=== PATIENT | female | born 1960 | race Caucasian/White ===

== ENCOUNTER 2017-02-04 16:32 | Observation (INO) | payer OTHER ==
[~2017-02-04] VITALS: Ht 154.9 cm; Wt 86.2 kg
[~2017-02-04 16:32] MED LIST: ALBUTEROL SULF8.5 GM IH; ASPIRIN81 M2 PO; CLONAZEPAM1 MG; CLONAZEPAM1 MG PO; CYCLOBENZAPRINE10 MG PO; FLEXERIL10 MG PO; FLONASE16 G1 BOTH NARES; FLOVENT 11120 INHALA IH; HYDROCODON-ACE1 EAC7; KLONOPIN1 MG PO; LIPITOR40 MG PO; LISINOPRIL10 MG PO; NEXIUM20 MG PO; NITROSTAT0.4 MG SL; PERCOCET 5/31 TABLET PO; PRAVASTATIN SOD20 MG PO; ULTRAM50 MG; VENTOLIN HFA18 GM IH; WELLBUTRIN SR150 MG PO
[2017-02-04 17:39] LABS: HEMATOCRIT 48.2 % (36.0-46.0); MCH 28.7 PG (29.0-34.0); MCHC 33.2 G/DL (30.0-36.0); MCV 86.5 FL (83-99); MEAN PLAT.VOLUME 9.3 uM^3 (9.5-12.4); PLATELET COUNT 341 K/uL (156-360); RBC DIS.WIDTH-CV 14.9 % (11.8-14.6); RBC DIS.WIDTH-SD 47.7 % (39-53); RED BLOOD COUNT 5.57 M/uL (3.80-5.20); WHITE BLOOD COUNT 11.9 K/uL (4.1-10.2)
[2017-02-04 17:51] LABS: CHLORIDE 102 mEq/L (99-109); SODIUM 137 mEq/L (136-147)
[2017-02-04 17:52] LABS: GLUCOSE 101 mg/dL (70-99)
[2017-02-04 17:54] LABS: ANION GAP 12 MEQ/L (2-14)
[2017-02-04 17:56] LABS: GFR ESTIMATE (CALCULATED) > 59 mL/min/
[2017-02-04 17:57] LABS: UREA NITROGEN (BUN) 10 mg/dL (9-23)
[2017-02-04 18:00] LABS: TROP-I INTERPRETATION NEGATIVE; TROPONIN-I 0.01 ng/mL (0.0-0.30)
[2017-02-04 18:05] LABS: BILIRUBIN NEGATIVE; BLOOD NEGATIVE; COLOR YELLOW ((YELLOW)); GLUCOSE (STRIP) NEGATIVE; KETONES NEGATIVE; LEUKOCYTES NEGATIVE; NITRITE NEGATIVE; PROTEIN (STRIP) NEGATIVE; SPECIFIC GRAVITY 1.008 (1.000-1.030); UROBILINOGEN 0.2 MG/DL (0.2-1.0)
[2017-02-04 18:13] LABS: ADD MIUA? NO
[2017-02-04] MEDS ORDERED: CLONAZEPAM0.5 MG PO (19:04)
[2017-02-04 21:25] LABS: HDL CHOLESTEROL 33 MG/DL (Desirable>=50); LDL CHOLESTEROL 219 mg/dL (Desirable<100); NON-HDL CHOLESTEROL 257 mg/dL (Desirable<160); TOTAL CHOLESTEROL 290 mg/dL (Desirable<200); TRIGLYCERIDES 190 MG/DL (Normal: <150)
[2017-02-04 21:35] VITALS: BP 137/61
[2017-02-05] VITALS: BP 121/61
[2017-02-05 04:00] VITALS: BP 130/62
[2017-02-05 05:31] LABS: HEMATOCRIT 44.6 % (36.0-46.0); MCH 29.5 PG (29.0-34.0); MCHC 33.9 G/DL (30.0-36.0); MCV 87.1 FL (83-99); MEAN PLAT.VOLUME 9.4 uM^3 (9.5-12.4); PLATELET COUNT 300 K/uL (156-360); RBC DIS.WIDTH-SD 48.1 % (39-53); RED BLOOD COUNT 5.12 M/uL (3.80-5.20); WHITE BLOOD COUNT 10.6 K/uL (4.1-10.2)
[2017-02-05 06:15] LABS: ALKALINE PHOSPHATASE 131 IU/L (3-129); ANION GAP 7 MEQ/L (2-14); CHLORIDE 103 MEQ/L (99-109); GFR ESTIMATE (CALCULATED) > 59 mL/min/; GLUCOSE 76 mg/dL (70-99); POTASSIUM 4.5 MEQ/L (3.7-5.4); SAMPLE HEMOLYSIS CHECK 0; SAMPLE ICTERIC CHECK 0; SAMPLE LIPEMIA CHECK 0; SODIUM 136 MEQ/L (136-147); TOTAL BILIRUBIN 0.4 MG/DL (0.0-1.0); UREA NITROGEN (BUN) 8 mg/dL (9-23)
[2017-02-05 07:16] VITALS: BP 123/58
[2017-02-05 07:40] LABS: Estimated Average Glucose 108 mg/dL (70-123); HEMOGLOBIN A1c (GLYCOHEMOGLOB) 5.4 % HGB (Below 5.7)
[2017-02-05] MEDS ORDERED: NICOTINE PATCH1 EAC2 TD (09:25)
[2017-02-05 11:35] VITALS: BP 168/77
[2017-02-05] MEDS ORDERED: PRAVASTATIN SOD40 MG PO (12:15)
[2017-02-05] MEDS ORDERED: ASPIRIN81 M2 PO (12:15)
== END 2017-02-05 13:25 | disposition home or self-care (01) ==
LOC: EME 16:32 → EDOF 19:25 → 5WEST 19:25 → EDOF 19:25 → 5WEST 21:30
PROVIDERS: Emergency Medicine; Nurse Practitioner Adult Health
DX: I63.9 Cerebral infarction, unspecified (principal); J44.9 Chronic obstructive pulmonary disease, unspecified; E78.5 Hyperlipidemia, unspecified; I10 Essential (primary) hypertension; K21.9 Gastro-esophageal reflux disease without esophagitis; Z79.82 Long term (current) use of aspirin; F17.200 Nicotine dependence, unspecified, uncomplicated; F32.9 Major depressive disorder, single episode, unspecified; F41.9 Anxiety disorder, unspecified
CPT/HCPCS: 70450; 70551; 71010; 80048; 80053; 80061; 81003; 83036; 84484; 85027; 93005; 93880; 94640; 99281; 99285; G0378; J1650

== ENCOUNTER 2017-04-06 20:21 | Emergency (ER) | payer OTHER ==
[~2017-04-06] VITALS: Ht 154.9 cm; Wt 83.9 kg
[~2017-04-06 20:21] MED LIST changes: +CLONAZEPAM0.5 MG PO; +NICOTINE PATCH1 EAC2 TD; +PRAVASTATIN SOD40 MG PO
[2017-04-06 20:50] LABS: HEMATOCRIT 43.9 % (36.0-46.0); MCH 28.3 PG (29.0-34.0); MCV 85.7 FL (83-99); PLATELET COUNT 304 K/uL (156-360); RBC DIS.WIDTH-CV 14.9 % (11.8-14.6); RED BLOOD COUNT 5.12 M/uL (3.80-5.20); WHITE BLOOD COUNT 11.7 K/uL (4.1-10.2)
[2017-04-06 21:02] LABS: CHLORIDE 107 mEq/L (99-109); POTASSIUM 4.4 mEq/L (3.7-5.4); SODIUM 139 mEq/L (136-147)
[2017-04-06 21:04] LABS: GLUCOSE 91 mg/dL (70-99)
[2017-04-06 21:06] LABS: ANION GAP 11 MEQ/L (2-14)
[2017-04-06 21:08] LABS: GFR ESTIMATE (CALCULATED) > 59 mL/min/
[2017-04-06 21:09] LABS: UREA NITROGEN (BUN) 11 mg/dL (9-23)
[2017-04-06 21:11] LABS: TROP-I INTERPRETATION NEGATIVE; TROPONIN-I < 0.01 ng/mL (0.0-0.30)
[2017-04-07 00:04] LABS: TROP-I INTERPRETATION NEGATIVE; TROPONIN-I < 0.01 ng/mL (0.0-0.30)
[2017-04-07] MEDS ORDERED: ZITHROMAX Z-PA250 MG PO (00:28)
[2017-04-07] MEDS ORDERED: VENTOLIN HFA18 GM IH (00:28)
[2017-04-07] MEDS ORDERED: PREDNISONE20 MG PO (00:28)
[2017-04-07 00:36] VITALS: BP 126/87
== END 2017-04-07 00:37 | disposition home or self-care (01) ==
LOC: EME 20:21
PROVIDERS: Physician Assistant Medical
DX: J44.1 Chronic obstructive pulmonary disease with (acute) exacerbation (principal); E78.5 Hyperlipidemia, unspecified; I10 Essential (primary) hypertension; K21.9 Gastro-esophageal reflux disease without esophagitis; Z86.73 Personal history of transient ischemic attack (TIA), and cerebral infarction without residual deficits; F17.200 Nicotine dependence, unspecified, uncomplicated
CPT/HCPCS: 71020; 80048; 84484; 85027; 93005; 94640; 99281; 99284

== ENCOUNTER 2018-01-25 09:59 | Observation (INO) | payer OTHER ==
[~2018-01-25] VITALS: Ht 154.9 cm; Wt 104.2 kg
[~2018-01-25 09:59] MED LIST changes: +PREDNISONE20 MG PO; +ZITHROMAX Z-PA250 MG PO
[2018-01-25 10:52] LABS: BASOPHIL (%) 0.6 % (0-1); BASOPHIL COUNT 0.1 K/uL (0-0.1); EOSINOPHIL COUNT 0.2 K/uL (0-0.3); HEMATOCRIT 46.4 % (36.0-46.0); HEMOGLOBIN 15.4 G/DL (11.9-15.5); IMMATURE GRANULOCYTE (%) 0.5 % (0.0-0.7); LYMPHOCYTE (%) 28.6 % (15-42); LYMPHOCYTE COUNT 2.9 K/uL (1.0-2.8); MCH 29.1 PG (29.0-34.0); MCHC 33.2 G/DL (30.0-36.0); MCV 87.7 FL (83-99); MONOCYTE (%) 5.2 % (3-12); MONOCYTE COUNT 0.5 K/uL (0-0.8); NEUTROPHIL (%) 63.1 % (45-76); NEUTROPHIL COUNT 6.5 K/uL (1.8-6.4); PLATELET COUNT 324 K/uL (156-360); RBC DIS.WIDTH-CV 15.1 % (11.8-14.6); RBC DIS.WIDTH-SD 48.3 % (39-53); RED BLOOD COUNT 5.29 M/uL (3.80-5.20); WHITE BLOOD COUNT 10.2 K/uL (4.1-10.2)
[2018-01-25 10:55] LABS: AMYLASE 80 IU/L (1-118); CHLORIDE 103 mEq/L (99-109); POTASSIUM 4.4 mEq/L (3.7-5.4); SODIUM 138 mEq/L (136-147)
[2018-01-25 10:57] LABS: GLUCOSE 120 mg/dL (70-99); PTT 28.7 SEC (25-37)
[2018-01-25 11:00] LABS: SERUM ETHYL ALCOHOL < 10 mg/dL
[2018-01-25 11:01] LABS: CREATININE 0.8 mg/dL (0.6-1.3); GFR ESTIMATE (CALCULATED) > 59 mL/min/
[2018-01-25 11:02] LABS: UREA NITROGEN (BUN) 15 mg/dL (9-23)
[2018-01-25 11:04] LABS: LIPASE 17 U/L (1.0-51.0)
[2018-01-25 11:08] LABS: TROP-I INTERPRETATION NEGATIVE; TROPONIN-I 0.01 ng/mL (0.0-0.30)
[2018-01-25 11:10] LABS: QUANTITATIVE HCG < 4.0 MIU/ML
[2018-01-25 12:24] LABS: APPEARANCE CLEAR ((CLEAR)); BILIRUBIN NEGATIVE; BLOOD NEGATIVE; COLOR YELLOW ((YELLOW)); GLUCOSE (STRIP) NEGATIVE; KETONES NEGATIVE; LEUKOCYTES NEGATIVE; NITRITE NEGATIVE; PROTEIN (STRIP) NEGATIVE; SPECIFIC GRAVITY 1.009 (1.000-1.030); UCUL ADDED? NO; UROBILINOGEN 0.2 MG/DL (0.2-1.0)
[2018-01-25 12:32] LABS: AMPHETAMINE NEGATIVE (500 ng/mL); BARBITURATES NEGATIVE (200 ng/mL); BENZODIAZEPINES NEGATIVE (150 ng/mL); BUPRENORPHINE NEGATIVE (10 ng/mL); COCAINE NEGATIVE (150 ng/mL); METHADONE NEGATIVE (200 ng/mL); METHAMPHETAMINE NEGATIVE (500 ng/mL); OPIATES (MORPHINE) NEGATIVE (100 ng/mL); OXYCODONE NEGATIVE (100 ng/mL); PHENCYCLIDINE NEGATIVE (25 ng/mL); PROPOXYPHENE NEGATIVE (300 ng/mL); THC CANNABINOIDS NEGATIVE (50 ng/mL); TRICYCLIC ANTIDEPRESSANTS NEGATIVE (300 ng/mL)
[2018-01-25] MEDS ORDERED: LISINOPRIL20 MG PO (15:29)
[2018-01-25] MEDS ORDERED: FLEXERIL10 MG PO (15:29)
[2018-01-25 16:33] LABS: HDL CHOLESTEROL 39 MG/DL (Desirable>=50); LDL CHOLESTEROL 203 mg/dL (Desirable<100); NON-HDL CHOLESTEROL 238 mg/dL (Desirable<160); TOTAL CHOLESTEROL 277 mg/dL (Desirable<200); TRIGLYCERIDES 175 MG/DL (Normal: <150)
[2018-01-25 17:25] VITALS: BP 135/72
[2018-01-25 19:00] VITALS: BP 110/53
[2018-01-26 00:42] VITALS: BP 119/72
[2018-01-26 03:36] VITALS: BP 131/64
[2018-01-26 08:34] VITALS: BP 120/70
[2018-01-26] MEDS ORDERED: PRAVASTATIN SOD40 MG PO (08:40)
[2018-01-26] MEDS ORDERED: PROPRANOLOL HCL60 MG PO (08:41)
[2018-01-26] MEDS ORDERED: NICOTINE PATCH1 EAC2 TD (08:43)
[2018-01-26 10:07] LABS: HEMOGLOBIN A1c (GLYCOHEMOGLOB) 5.8 % (Below 5.7)
== END 2018-01-26 10:30 | disposition home or self-care (01) ==
LOC: EME 09:59 → EDOF 15:03 → ENRESERV 15:05 → 4SOUTH 17:09 → ENPENDDIS 01-26 08:50 → 4SOUTH 01-26 10:30
PROVIDERS: Emergency Medicine; Hospitalist
DX: G43.109 Migraine with aura, not intractable, without status migrainosus (principal); G44.89 Other headache syndrome; R20.2 Paresthesia of skin; R20.0 Anesthesia of skin; Z86.73 Personal history of transient ischemic attack (TIA), and cerebral infarction without residual deficits; I10 Essential (primary) hypertension; E78.5 Hyperlipidemia, unspecified; J44.9 Chronic obstructive pulmonary disease, unspecified; F17.200 Nicotine dependence, unspecified, uncomplicated; Z79.82 Long term (current) use of aspirin; Z88.5 Allergy status to narcotic agent; Z90.49 Acquired absence of other specified parts of digestive tract; Z90.710 Acquired absence of both cervix and uterus; Z82.49 Family history of ischemic heart disease and other diseases of the circulatory system; Z80.0 Family history of malignant neoplasm of digestive organs; F41.9 Anxiety disorder, unspecified
CPT/HCPCS: 70450; 70551; 80048; 80061; 81003; 82150; 83036; 83690; 84484; 84702; 85025; 85610; 85730; 86850; 86900; 86901; 93005; 99281; 99285; G0378; G0480; J1650